=== PATIENT | male | born 1980 | race African-American/Black ===

== ENCOUNTER 2019-02-01 09:41 | Emergency (ER) | payer OTHER, BC ==
[~2019-02-01] VITALS: Ht 190.5 cm; Wt 88.0 kg
[2019-02-01 09:58] VITALS: BP 126/82
== END 2019-02-01 10:52 | disposition home or self-care (01) ==
LOC: ER 09:41
DX: M62.830 Muscle spasm of back (principal); M54.2 Cervicalgia; Z87.891 Personal history of nicotine dependence; V49.9XXA Car occupant (driver) (passenger) injured in unspecified traffic accident, initial encounter; Y93.89 Activity, other specified; Y92.488 Other paved roadways as the place of occurrence of the external cause; Y99.8 Other external cause status